=== PATIENT | male | born 1975 ===

== ENCOUNTER 2016-12-11 01:21 | Emergency (ER) | payer SELFPAY ==
--- NOTE | 2016-12-11 02:08 | ED PDOC ---
HPI: Headache Time Seen by Provider: 12/11/16 01:54 Chief Complaint (Nursing): Headache Chief Complaint (Provider): Headache History Per: Patient Additional Complaint(s): 41 yo male, PMH of Headache and dizziness Past Medical History Vital Signs: Last Vital Signs Temp 98 F 12/11/16 01:51 Pulse 117 H 12/11/16 01:51 Resp 18 12/11/16 01:51 BP 146/75 12/11/16 01:51 Pulse Ox 100 12/11/16 01:51 - Family History Family History: States: Unknown Family Hx - Immunization History Hx Tetanus Toxoid Vaccination: No Hx Influenza Vaccination: No Hx Pneumococcal Vaccination: No - Home Medications Home Medications: Ambulatory Orders Medication Instructions Recorded Bacitracin Ointment [Bacitracin] 30 gm TOP BID #1 tube 12/14/14 Meclizine [Meclizine*] 25 mg PO Q6 #30 tab 12/11/16 Methylprednisolone [Medrol Dose 4 mg PO DAILY #21 mg 12/11/16 Pack (21 tabs)] - Allergies Allergies/Adverse Reactions: Allergies Allergy/AdvReac Type Severity Reaction Status Date / Time No Known Allergies Allergy Verified 12/14/14 18:22 - Laboratory Results Result Diagrams: 12/11/16 02:15 12/11/16 02:15 - ECG O2 Sat by Pulse Oximetry: 100 Disposition - Clinical Impression Clinical Impression: Headache, Vertigo - Patient ED Disposition Is Patient to be Admitted: No - Disposition Referrals: [facility] [Outside] Disposition: Routine/Home Disposition Time: 04:00 Condition: STABLE Prescriptions: Meclizine [Meclizine*] 25 mg PO Q6 #30 tab Methylprednisolone [Medrol Dose Pack (21 tabs)] 4 mg PO DAILY #21 mg Instructions: Vertigo (ED), Acute Headache (ED) Forms: [employer] ([place]an) - POA Present On Arrival: None
[2016-12-11 02:25] LABS: BASO # 0.1 K/uL (0.0-0.2); BASO % 0.7 % (0.0-2.0); EOS # 0.1 K/uL (0.0-0.7); EOS % 0.8 % (0.0-4.0); HEMATOCRIT 43.3 % (35.0-51.0); LYMPH # 1.5 K/uL (1.0-4.3); LYMPH % 8.8 % (20.0-40.0); MEAN CELL VOLUME 85.5 fl (80.0-94.0); MEAN CORPUSCULAR HEMOGLOBIN 28.4 pg (27.0-31.0); MEAN CORPUSCULAR HGB CONC 33.2 g/dL (33.0-37.0); MEAN PLATELET VOLUME 9.3 fl (7.2-11.7); MONO # 1.2 K/uL (0.0-0.8); NEUT # 14.4 K/uL (1.8-7.0); NEUT % 82.7 % (50.0-75.0); PLATELET COUNT 250 K/uL (130-400); RED CELL DISTRIBUTION WIDTH 13.6 % (11.5-14.5); WHITE BLOOD COUNT 17.4 K/uL (4.8-10.8)
[2016-12-11 02:30] LABS: CHLORIDE 102 mmol/L (98-107); POTASSIUM 3.8 MMOL/L (3.6-5.0); SODIUM 138 mmol/l (132-148)
[2016-12-11 02:32] LABS: AST/SGOT 29 U/L (17-59); BILIRUBIN,TOTAL 0.8 mg/dl (0.2-1.3); CARBON DIOXIDE 23 mmol/L (22-30); GFR AFRICAN-AMERICAN > 60
[2016-12-11 02:33] LABS: ALB/GLOB RATIO 1.2 (1.0-2.1); ALKALINE PHOSPHATASE 91 U/L (38-126); ALT/SGPT 63 U/L (21-72); BLOOD UREA NITROGEN 13 mg/dl (9-20); CALCIUM 8.8 mg/dL (8.4-10.2); GLUCOSE,RANDOM 101 mg/dL (75-110); TOTAL PROTEIN 8.2 G/DL (6.3-8.2)
[2016-12-11 02:49] LABS: PARTIAL THROMBOPLASTIN TIME 34.7 Seconds (25.6-37.1)
[2016-12-11 03:32] VITALS: PULSE 100
[2016-12-11 04:54] VITALS: BP 132/76; RESP 16; TEMP 99.8
[2016-12-11 05:56] LABS: EOSINOPHIL 1 % (0-7); NEUTROPHIL 80 % (42-75); TOTAL CELLS COUNTED 100
--- NOTE | 2016-12-11 09:52 | CT ---
PROCEDURE: CT HEAD WITHOUT CONTRAST. HISTORY: dizzy, headache COMPARISON: None available. TECHNIQUE: Axial computed tomography images were obtained through the head/brain without intravenous contrast. Radiation dose: Total exam DLP = 871.88 mGy-cm. This CT exam was performed using one or more of the following dose reduction techniques: Automated exposure control, adjustment of the mA and/or kV according to patient size, and/or use of iterative reconstruction technique. FINDINGS: HEMORRHAGE: No intracranial hemorrhage. BRAIN: No mass effect or edema. No atrophy or chronic microvascular ischemic changes. VENTRICLES: Unremarkable. No hydrocephalus. CALVARIUM: Unremarkable. PARANASAL SINUSES: Unremarkable as visualized. No significant inflammatory changes. MASTOID AIR CELLS: Unremarkable as visualized. No inflammatory changes. OTHER FINDINGS: None. IMPRESSION: Normal CT of the Head.
--- NOTE | 2016-12-11 13:59 | RAD ---
PROCEDURE: CHEST RADIOGRAPH, 1 VIEW HISTORY: cp COMPARISON: No prior study available for comparison. FINDINGS: LUNGS: Poor inspiration with low lung volumes, crowded bronchovascular markings and mild bibasilar atelectasis. PLEURA: No pneumothorax or pleural fluid seen. CARDIOVASCULAR: Normal. OSSEOUS STRUCTURES: No significant abnormalities. VISUALIZED UPPER ABDOMEN: Normal. OTHER FINDINGS: None. IMPRESSION: Poor inspiration with low lung volumes, crowded bronchovascular markings and mild bibasilar atelectasis.
--- NOTE | 2016-12-12 00:11 | CARD ---
APPROVED REPORT EKG Measurement Heart [id number] <Conclusion> Sinus tachycardia Left axis deviation Abnormal ECG
[2016-12-13 23:32] VITALS: O2SAT 100
== END 2016-12-11 04:54 | disposition home or self-care (01) ==
LOC: H.ER 01:21
DX: R51 Headache (principal); R42 Dizziness and giddiness
CPT/HCPCS: 70450; 71010; 80053; 82948; 84484; 85025; 85610; 85730; 93005; 99285; G0480

== ENCOUNTER 2018-05-21 00:37 | Emergency (ER) | payer OTHER ==
[2018-05-21 01:00] VITALS: RESP 18; TEMP 97.6
--- NOTE | 2018-05-21 01:47 | ED PDOC ---
HPI: Back Time Seen by Provider: 05/21/18 01:11 Chief Complaint (Nursing): Back Pain Chief Complaint (Provider): low back pain History Per: Patient History/Exam Limitations: no limitations Onset/Duration Of Symptoms: Days (1 week) Current Symptoms Are (Timing): Still Present Additional Complaint(s): 43 y/o Male with no PMH who presents with low back pain x 1 week. He states that he has a hx of scoliosis that improved with physical therapy in the past. 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 The pain was worse today than previously. He took 2 Tylenol today that improved the pain but it remains. Denies fever, chills, night sweats, trauma, lower extremity numbness/tingling, gait disturbance. Past Medical History Reviewed: Historical Data, Nursing Documentation, Vital Signs Vital Signs: Last Vital Signs Temp 97.6 F 05/21/18 00:50 Pulse 89 05/21/18 00:50 Resp 18 05/21/18 00:50 BP 129/82 05/21/18 00:50 Pulse Ox 98 05/21/18 00:50 - Medical History PMH: No Chronic Diseases - Family History Family History: States: Unknown Family Hx - Social History Current smoker - smoking cessation education provided: No Ex-Smoker (has not smoked in the last 12 months): No Alcohol: Social Drugs: Denies - Immunization History Hx Tetanus Toxoid Vaccination: No Hx Influenza Vaccination: No Hx Pneumococcal Vaccination: No - Home Medications Home Medications: Ambulatory Orders Medication Instructions Recorded Bacitracin Ointment [Bacitracin] 30 gm TOP BID #1 tube 12/14/14 Meclizine [Meclizine*] 25 mg PO Q6 #30 tab 12/11/16 Methylprednisolone [Medrol Dose 4 mg PO DAILY #21 mg 12/11/16 Pack (21 tabs)] Cyclobenzaprine [Cyclobenzaprine 10 mg PO Q8 PRN 5 Days tab 05/21/18 HCl] Naproxen 500 mg PO BID PRN 5 Days ect 05/21/18 - Allergies Allergies/Adverse Reactions: Allergies Allergy/AdvReac Type Severity Reaction Status Date / Time No Known Allergies Allergy Verified 12/14/14 18:22 Review of Systems ROS Statement: Except As Marked, All Systems Reviewed And Found Negative Constitutional: Negative for: Fever, Chills, Sweats, Weakness Cardiovascular: Positive for: Chest Pain Musculoskeletal: Positive for: Back Pain (low back pain) Neurological: Negative for: Weakness, Numbness, Incoordination Physical Exam - Reviewed Nursing Documentation Reviewed: Yes Vital Signs Reviewed: Yes - Physical Exam Appears: Positive for: Non-toxic Head Exam: Positive for: ATRAUMATIC Skin: Positive for: Normal Color Neck: Positive for: Normal Back: Positive for: Normal Inspection, Decreased ROM (with flexion of back). Negative for: L CVA Tenderness, R CVA Tenderness, Vertebral Tenderness Extremity: Positive for: Other (normal flexion and extension at hip, pain with abduction of Right hip) Neurologic/Psych: Positive for: Alert, Oriented, Gait (normal), Other (reproducible low back pain with straight leg raise on Right, strenght = in B/L lower extremities, ) - ECG O2 Sat by Pulse Oximetry: 98 Medical Decision Making Medical Decision Making: Toradol 30mg IM x 1 Flexeril 10mg PO x 1 Re-evaluation 2:30am: re-evaluated and states pain much improved. Disposition - Clinical Impression Clinical Impression: Low back pain - Patient ED Disposition Is Patient to be Admitted: No Counseled Patient/Family Regarding: Diagnosis, Need For Followup, Rx Given - Disposition Referrals: [facility] [Outside] Disposition: Routine/Home Disposition Time: 02:55 Condition: STABLE Additional Instructions: Rest and take Naproxen and Flexeril for pain. Flexeril may make you sleepy so avoid taking it prior to driving or operating heavy machinery. Return to ER if your pain worsens or you develop lower extremity numbness/tingling or loss of bowel/bladder control. Prescriptions: Cyclobenzaprine [Cyclobenzaprine HCl] 10 mg PO Q8 PRN 5 Days tab PRN Reason: Pain, Moderate (4-7) Naproxen 500 mg PO BID PRN 5 Days ect PRN Reason: Pain, Moderate (4-7) Instructions: Low Back Pain (DC) Forms: [facility] ED School/Work Excuse Print Language: ROMANSH
[2018-05-21 03:19] VITALS: BP 136/92; PULSE 82; O2SAT 97
== END 2018-05-21 03:10 | disposition home or self-care (01) ==
LOC: H.ER 00:37
DX: M54.5 Low back pain (principal)
CPT/HCPCS: 96372; 99283; J1885

== ENCOUNTER 2018-06-26 16:09 | Emergency (ER) | payer OTHER ==
--- NOTE | 2018-06-26 19:27 | ED PDOC ---
HPI: Back Time Seen by Provider: 06/26/18 17:36 Chief Complaint (Nursing): Back Pain Chief Complaint (Provider): Back Pain History Per: Patient History/Exam Limitations: no limitations Onset/Duration Of Symptoms: Other (one month) Current Symptoms Are (Timing): Still Present Quality Of Discomfort: "Pain" Additional Complaint(s): 43 year old male presents to the ED for an evaluation of lower back pain onset for one month. He states the pain radiates down to his right leg. 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 Also reports he took 2 tablets of Tylenol 4 hours ago. PMD: Non [facility]PH Provider Past Medical History Reviewed: Historical Data, Nursing Documentation, Vital Signs - Medical History PMH: Gastritis Denies: Chronic Kidney Disease - Family History Family History: States: Unknown Family Hx - Social History Current smoker - smoking cessation education provided: No Alcohol: None Drugs: Denies - Immunization History Hx Tetanus Toxoid Vaccination: No Hx Influenza Vaccination: No Hx Pneumococcal Vaccination: No - Home Medications Home Medications: Ambulatory Orders Medication Instructions Recorded RX: Bacitracin Ointment 30 gm TOP BID #1 tube 12/14/14 [Bacitracin] Methylprednisolone [Medrol Dose 4 mg PO DAILY #21 mg 12/11/16 Pack (21 tabs)] RX: Meclizine [Meclizine*] 25 mg PO Q6 #30 tab 12/11/16 Cyclobenzaprine [Cyclobenzaprine 10 mg PO Q8 PRN 5 Days tab 05/21/18 HCl] RX: Naproxen 500 mg PO BID PRN 5 Days ect 05/21/18 RX: Cyclobenzaprine [Flexeril] 10 mg PO TID #27 tab 06/26/18 RX: Diclofenac Sodium 50 mg PO BID #30 tablet. 06/26/18 - Allergies Allergies/Adverse Reactions: Allergies Allergy/AdvReac Type Severity Reaction Status Date / Time No Known Allergies Allergy Verified 12/14/14 18:22 Review of Systems ROS Statement: Except As Marked, All Systems Reviewed And Found Negative Musculoskeletal: Positive for: Back Pain, Leg Pain Neurological: Negative for: Weakness, Numbness Physical Exam - Reviewed Nursing Documentation Reviewed: Yes Vital Signs Reviewed: Yes - Physical Exam Appears: Positive for: Well, Non-toxic, No Acute Distress Head Exam: Positive for: ATRAUMATIC, NORMAL INSPECTION, NORMOCEPHALIC Skin: Positive for: Normal Color, Warm, Dry. Negative for: Rash Eye Exam: Positive for: Normal appearance Cardiovascular/Chest: Positive for: Regular Rate, Rhythm. Negative for: Murmur Respiratory: Positive for: Normal Breath Sounds. Negative for: Decreased Breath Sounds, Wheezing, Respiratory Distress Back: Negative for: Normal Inspection (bilateral lumbar axial facial tenderness) Neurologic/Psych: Positive for: Alert, Oriented (x3) - ECG Pulse Ox Interpretation: Normal Medical Decision Making Medical Decision Making: Time: 1920 Initial Impression: back pain Initial Plan: Toradol 60mg Acetaminophen 650mg Reevaluation Scribe Attestation: Documented by Scott Noriega, acting as a scribe for Diego Sanchez PA-C. Provider Scribe Attestation: All medical record entries made by the Scribe were at my direction and personally dictated by me. I have reviewed the chart and agree that the record accurately reflects my personal performance of the history, physical exam, medical decision making, and the department course for this patient. I have also personally directed, reviewed, and agree with the discharge instructions and disposition. Disposition - Clinical Impression Clinical Impression: Back pain, Chronic back pain - Disposition Referrals: [facility] [Outside] Disposition Time: 20:40 Condition: STABLE Prescriptions: RX: Cyclobenzaprine [Flexeril] 10 mg PO TID #27 tab RX: Diclofenac Sodium 50 mg PO BID #30 tablet.dr Forms: [employer] (Slovak)
[2018-06-26 20:57] VITALS: BP 142/75; PULSE 86; RESP 17; O2SAT 100
== END 2018-06-26 20:57 | disposition home or self-care (01) ==
LOC: H.ER 16:09
DX: M54.9 Dorsalgia, unspecified (principal)
CPT/HCPCS: 96372; 99283; J1885